=== PATIENT | female | born 1980 | race Caucasian/White ===

== ENCOUNTER → 2018-12-11 | Outpatient (CLI) | payer OTHER ==
[~2018-12-11] MED LIST: ACET325 PO; AMLO5 PO; BUSP5 PO; CALPHO600; CITA20 PO; CLON.1 PO; DILT120 PO; DILT30 PO; DILTIAZEM; ESCI10 PO; ESOM20; FISH1000; HYDR1TAB94 PO; IBUP800 PO; INDO25 PO; LABE200 PO; LOSA25 PO; MEDR150I IM; METF500C PO; MULVITMIND PO; MULVITMINE PO; Maxalt5 MG; Mobic15 MG PO; NAPR550 PO; Naprosyn500 MG PO; OLME20 PO; OXYACE5T PO; PRED20 PO; PROM25 PO; TOCO400; Veetids 500500 MG PO; Vistaril25 MG PO; Vitamin D2000 UNIT PO; WATER PILL; ZESTORETIC 20-121 EA PO
[2018-12-13 18:08] LABS: HPV 16 Negative (Negative); HPV 18 Negative (Negative); HPV OTHER HR TYPES Negative (Negative)
== END ==
LOC: LAB SHORT 15:36 → LAB 15:36
PROVIDERS: Obstetrics & Gynecology
DX: Z01.419 Encounter for gynecological examination (general) (routine) without abnormal findings (principal)
CPT/HCPCS: 87624; G0123

== ENCOUNTER → 2018-12-18 | Outpatient (CLI) | payer OTHER ==
[2018-12-18 11:32] LABS: Source, Urine Clean Catch
[2018-12-18 12:45] LABS: Appearance, Urine Hazy (Clear); Bilirubin, Urine Neg (Neg); Blood, Urine Neg (Neg); Color, Urine Yellow (P-Yellow); Glucose Qualitative, Urine Neg (Neg); Ketones, Urine Neg (Neg); Leukocyte Esterase, Urine Neg (Neg); Nitrite, Urine Neg (Neg); Protein, Urine Neg (Neg); Urobilinogen, Urine NORM (Normal)
[2018-12-18 13:01] LABS: Bacteria Mod /hpf; Red Blood Cells, Urine 0-2 /hpf (0-2); Squamous Epithelial Cells Mod /hpf (Few)
== END | disposition home or self-care (01) ==
LOC: LAB SHORT 11:05 → LAB 11:05
PROVIDERS: Obstetrics & Gynecology
DX: R30.0 Dysuria (principal)
CPT/HCPCS: 81001; 87086

== ENCOUNTER 2018-12-25 07:54 | Day surgery (SDC) | payer OTHER ==
[~2018-12-25] VITALS: Ht 165.1 cm; Wt 135.6 kg
--- NOTE | 2018-12-25 08:48 | NUR ---
Patient states colon prep results clear. History, Chart, Medications and Allergies reviewed before start of procedure. Patient confirms NPO status and agrees with scheduled surgery. Patient States Post-Procedure ride home has been arranged.
--- NOTE | 2018-12-25 09:22 | NUR ---
12/25/18 0922 Vinnie Chavez 3-LEAD EKG REVIEWED WITH PHYSICIAN PRIOR TO START OF PROCEDURE.PATIENT CONFIRMS NPO STATUS AND AGREES WITH SCHEDULED PROCEDURE.History, Chart, Medications and Allergies reviewed before start of procedure. MONITOR INTACT WITH CONTINUOUS PULSE OXIMETRY AND INTERMITTENT BP. O2 VIA N/C INTACT THROUGHOUT SEDATION/PROCEDURE.
--- NOTE | 2018-12-25 10:30 | NUR ---
Discharge instructions reviewed with patient. Patient verbalizes understanding. Copy given to patient to take home. Discharged via wheelchair to private car for ride home.
== END 2018-12-25 10:20 | disposition home or self-care (01) ==
LOC: ORSCMMR 07:54 → ORD 09:30 → ORSCMMR 10:20
PROVIDERS: Internal Medicine Gastroenterology
PROC: 0DBM8ZX Excision of Descending Colon, Via Natural or Artificial Opening Endoscopic, Diagnostic (ICD-10-PCS; principal; 2018-12-25 09:30)
PROC: 0DBP8ZX Excision of Rectum, Via Natural or Artificial Opening Endoscopic, Diagnostic (ICD-10-PCS; principal; 2018-12-25 09:30)
PROC: 0DBK8ZX Excision of Ascending Colon, Via Natural or Artificial Opening Endoscopic, Diagnostic (ICD-10-PCS; principal; 2018-12-25 09:30)
PROC: 0DBN8ZX Excision of Sigmoid Colon, Via Natural or Artificial Opening Endoscopic, Diagnostic (ICD-10-PCS; principal; 2018-12-25 09:30)
DX: K62.5 Hemorrhage of anus and rectum (principal); D12.2 Benign neoplasm of ascending colon; D12.8 Benign neoplasm of rectum; K63.5 Polyp of colon; Q27.33 Arteriovenous malformation of digestive system vessel; G47.33 Obstructive sleep apnea (adult) (pediatric); I10 Essential (primary) hypertension; E66.01 Morbid (severe) obesity due to excess calories
CPT/HCPCS: 82947; 88305; J2405; J7120

== ENCOUNTER → 2021-12-28 | Outpatient (CLI) | payer OTHER | LOC: LAB SHORT 15:00 | DX: E11.9 Type 2 diabetes mellitus without complications (principal) | CPT/HCPCS: 83036 ==

== ENCOUNTER → 2022-09-01 | Outpatient (CLI) | payer OTHER ==
[2022-09-05 15:09] LABS: HPV 16 Negative (Negative); HPV 18 Negative (Negative); HPV OTHER HR TYPES Negative (Negative)
== END | disposition home or self-care (01) ==
LOC: LAB 17:00 → LAB SHORT 17:00
PROVIDERS: Family Medicine
DX: Z12.4 Encounter for screening for malignant neoplasm of cervix (principal)
CPT/HCPCS: 87624; 88305; G0123

== ENCOUNTER → 2023-01-05 | Outpatient (CLI) | payer OTHER | END | disposition home or self-care (01) | LOC: PLD 08:42 → LAB SHORT 08:42 | DX: D25.9 Leiomyoma of uterus, unspecified (principal) | CPT/HCPCS: 88305 ==

== ENCOUNTER 2023-02-15 13:19 | Day surgery (SDC) | payer OTHER ==
[~2023-02-15] VITALS: Ht 165.1 cm; Wt 110.4 kg
[2023-02-15] MEDS ORDERED: FAMO20 (13:56)
[2023-02-15] MEDS ORDERED: OMEGA-3 + VITA200 ML PO (13:56)
--- NOTE | 2023-02-15 14:54 | NUR ---
02/15/23 1454 CHEKO AGUIRRE PT DRANK 4 OZ BONE BROTH AT 11:[address] MALONE AND DR FOREMAN CANCELLED PROCEDURE
== END 2023-02-15 14:53 | disposition home or self-care (01) ==
LOC: ORSCSDS 13:19
DX: D25.0 Submucous leiomyoma of uterus (principal); Z53.9 Procedure and treatment not carried out, unspecified reason; E11.9 Type 2 diabetes mellitus without complications; I10 Essential (primary) hypertension; Z87.891 Personal history of nicotine dependence; Z79.84 Long term (current) use of oral hypoglycemic drugs; Z79.899 Other long term (current) drug therapy
CPT/HCPCS: 82947; A9270; J1885; J2765